=== PATIENT | female | born 1970 | race Caucasian/White ===

== ENCOUNTER → 2020-10-31 08:36 | Outpatient (BNVA) | payer OTHER, SELFPAY | PROVIDERS: PCP Internal Medicine; Visit Provider Hospitalist ==

== ENCOUNTER 2023-04-29 09:14 | Outpatient (AMB) | payer OTHER, SELFPAY ==
--- NOTE | 2023-04-29 09:30 | A.OFFVIS_ITS ---
Intake Vital Signs 04/29/23 09:31 Height 5 ft 3 in Weight 149 lb 14.629 oz BMI 26.6 BP 110/70 Blood Pressure Location Lt brachial Position Sitting Pulse 72 Pulse Source Pulse Oximeter Pulse Oximetry (%) 100 Oxygen Delivery Method Room Air Intake Visit Reasons: asthma Allergies Clindamycin Allergy (Severe, Uncoded 04/29/23 09:33) Rash Sulfa Drugs Allergy (Severe, Uncoded 04/29/23 09:33) Skin Disorder HPI HPI Comments History of Present Illness Details 52-year-old lady with moderate persistent asthma, environmental allergies, and gastroesophageal reflux disease. Patient states that her symptoms have been controlled on her underlying regimen of Symbicort and albuterol MDI. She requires using her albuterol MDI. Her allergy symptoms are also reasonably well controlled on Flonase. She continues to use PPI for her underlying GERD. She denies any recent asthma exacerbations. the patient has a telephone visit. Overall the patient has been doing well. She continues on the current respiratory regimen. However, since she is spending more time home she is noticing worsening allergy symptoms. She has been complaining of increasing size sinus congestion and runny nose and postnasal drip. She does have a rescue inhaler that she rarely uses. She continues using the Symbicort twice a day with good effect. In the meantime will try Astelin nasal spray that she can use in conjunction with her fluticason e nasal spray to minimize her allergy symptoms. The patient also should be rinsing her nose with saline. She continues to monitor closely her reflux disease. She should be sleeping elevated and following closely the reflux diet. 03/05/2022 the patient is here for pulmonary follow-up visit. Overall the patient has been doing well. She has been using her Symbicort as needed. She has not required her nebulizer. She does have increased allergy now with the allergy season. She continues on the Zyrtec. She did not want to try the Astelin nasal spray because she is concerned about new medications. She is still working from home. The patient has not had any laboratories or imaging studies to review. She does have some clubbing on examination which have been noted before. Likely congenital. I have her get a chest x-ray whenever possible. Otherwise will continue with current medical regimen. 04/29/2023 the patient is here for pulmonary follow-up visit. Patient having worsening respiratory symptoms. Her mother was gravely ill and she had other medical issues going on the family. She had not been using her respiratory medicine. She actually ran out of Symbicort and she also started using Zyrtec. Her mother just and she is grieving her loss. However, the weaver hand loom getting worse she did a more chest tightness and wheezing. [id number] severity also having significant nasal congestion. The patient would like to go back on the Symbicort. Use that helps. She also will start the Zyrtec. She was sent singular before but she believes that she got older press on it so will hold off on that. She does have wheezing on examination. Although I do believe she will get better when she starts Symbicort. The patient was supposed to get a chest x-ray but she did not have time to do that as of yet. Will plan to repeat the x-ray at some time specially if she is no better. We did talk about the pneumonia vaccine. The patient is going to think about it. I do believe that she get the Prevnar 20. Will plan to give her next year if she has not received it as of yet. [facility] Medical History (Updated 10/31/20 @ 19:30 by Naga Espinoza MD) Asthma Chronic allergic rhinitis Social History (Updated 03/05/22 @ 08:44 by CELSA Chong) Patient Tobacco Use Status: Former Tobacco user Tobacco use type: Cigarette Years Smoked: 25 years Review of Systems Const Denies night sweats ENT Denies change in voice, Denies lip swelling, Denies mouth pain, Reports nasal congestion, Reports nasal discharge and Denies tongue swelling Card Denies chest pain Resp Reports cough GI Denies abdominal pain Musc Denies no additional complaints Neuro Denies Neuro-related abnormal movements Psych Denies no additional complaints Von/Lymph Denies easy bleeding and Denies lymphadenopathy Aller/Immun Denies lip swelling and Denies tongue swelling Physical Exam Vital Signs: Last Vital Signs Pulse 72 04/29/23 09:31 BP 110/70 04/29/23 09:31 Pulse Ox 100 04/29/23 09:31 Oxygen Delivery Method Room Air 04/29/23 09:31 BMI result Body Mass Index 26.6 Const General: alert Eyes General: appearance normal, both eyes and all related structures Neck Neck: Yes normal visual inspection and Yes supple Chest Chest palpation & inspection: normal inspection of the chest Resp Auscultation: wheezes and diminished lung sounds Cardio Rate: regular rate Rhythm: regular rhythm Heart sounds: S1 normal heart sound present and S2 normal heart sound present GI Inspection: Yes normal to inspection Extrem General: Yes clubbing, No cyanosis and No edema Assessment & Plan Assessment & Plan (1) Asthma: Code(s): J45.909 - Unspecified asthma, uncomplicated Qualifiers: Asthma complication type: uncomplicated Asthma persistence: persistent Asthma severity: moderate Qualified Code(s): J45.40 - Moderate persistent asthma, uncomplicated (2) Chronic allergic rhinitis: Code(s): J30.9 - Allergic rhinitis, unspecified Plan retart Symbicort with spacer as needed consider KAREN to use as needed Continue fluticasone continue zyrtec CXR F/U 1 year Medications: Changed From cetirizine (Zyrtec) 10 mg PO DAILY PRN To cetirizine (Zyrtec) 10 mg PO DAILY 30 caps 11RF Refilled budesonide-formoterol 160-4.5 mcg/actuation (Symbicort) 2 puffs inhalation BID 30 days 10.2 grams 11RF J44.9 - Chronic obstructive pulmonary disease, unspecified Coding Level of Care Code Est Pt Level 4 (74028) Diagnoses Asthma J45.40 Asthma complication type: uncomplicated Asthma persistence: persistent Asthma severity: moderate Chronic allergic rhinitis J30.9 Time Spent (min) 17
[2023-04-29 09:31] VITALS: BP 110/70; PULSE 72; O2SAT 100; BMI 26.6
== END 2023-04-29 09:51 | disposition home or self-care (01) ==
PROVIDERS: PCP Internal Medicine; Visit Provider Hospitalist
DX: J45.40 Moderate persistent asthma, uncomplicated (principal); J30.9 Allergic rhinitis, unspecified
CPT/HCPCS: 99214

== ENCOUNTER → 2023-04-29 09:14 | Outpatient (BNVA) | payer OTHER, SELFPAY | PROVIDERS: PCP Internal Medicine; Visit Provider Hospitalist ==